=== PATIENT | male | born 1965 | race Caucasian/White ===

== ENCOUNTER → 2024-03-09 08:04 | Outpatient (REF) | payer OTHER, SELFPAY | LOC: DHCBC/DCA 08:04 | PROVIDERS: ATTENDING PHYSICIAN Internal Medicine Cardiovascular Disease; FAMILY PHYSICIAN Family Medicine | DX: R07.9 Chest pain, unspecified (principal) | CPT/HCPCS: 78452; 93017; A9500 ==

== ENCOUNTER 2024-09-15 00:54 | Emergency (ER) | payer OTHER, SELFPAY ==
[2024-09-15 00:54] VITALS: BMI 35.3
[2024-09-15 00:56] VITALS: BP 189/83
[2024-09-15 01:31] LABS: % Basophils 0.5 % (0-2); % Eosinophils 1.7 % (0-6); % Immature Granulocytes 0.4 % (0-0.5); % Lymphocytes 19.3 % (20.5-51.1); % Monocytes 10.2 % (1.7-9.3); % Neutrophils 67.9 % (42.2-75.2); Absolute Basophils 0.1 10^3/uL (0-0.2); Absolute Eosinophils 0.2 10^3/uL (0-0.7); Absolute Immature Granulocytes 0.1 10^3/uL (0-0.05); Absolute Lymphocytes 2.3 10^3/uL (1.2-3.4); Absolute Monocytes 1.2 10^3/uL (0.1-0.6); Absolute Neutrophils 8.1 10^3/uL (1.4-6.5); Hematocrit 42.3 % (39.0-52.0); Hemoglobin 13.9 g/dL (13.0-18.0); Mean Corp Hgb Conc. 32.9 g/dL (33.0-37.0); Mean Corpuscular Hgb 29.3 pg (27.0-31.0); Mean Corpuscular Volume 89.2 fL (80.0-94.0); Mean Platelet Volume 8.6 fL (7.4-10.4); Nucleated Red Blood Cells % 0 % (-); Platelet Count 236 10^3/uL (130-400); Red Blood Cell Count 4.74 10^6/uL (4.70-6.10); Red Cell Dist. Width 13.5 % (11.5-14.5); White Blood Cell Count 11.9 10^3/uL (4.8-10.8)
[2024-09-15 01:45] VITALS: BP 183/78
[2024-09-15 01:49] LABS: ALT (SGPT) 22 U/L (0-50); AST (SGOT) 24 U/L (17-59); Albumin 4.4 g/dl (3.5-5.0); Alkaline Phosphatase 49 U/L (38-126); Blood Urea Nitrogen 15 mg/dl (9-20); Calcium 8.8 mg/dl (8.4-10.2); Carbon Dioxide 24 mmol/L (22-30); Chloride 104 mmol/L (98-107); Estimated Creatinine Clearance 114 ml/min; Glucose 121 mg/dl (70-99); Potassium 3.8 mmol/L (3.5-5.1); Sodium 142 mmol/L (135-145); Total Bilirubin 0.8 mg/dl (0.2-1.3); Total Protein 7.2 g/dl (6.3-8.2); eGFR > 60.00
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
[2024-09-15 01:57] LABS: Troponin I < 0.012 ng/ml
[2024-09-15 02:00] VITALS: BP 148/85
[2024-09-15 02:14] LABS: Lipase 107 U/L (23-300)
[2024-09-15 03:37] VITALS: BP 160/72
[2024-09-15 04:00] VITALS: BP 151/81
[2024-09-15] MEDS: TORADOL 30 MG IV (04:16)
[2024-09-15 05:00] VITALS: BP 152/72
== END 2024-09-15 05:56 | disposition home or self-care (01) ==
LOC: EMR 00:54
PROVIDERS: EMERGENCY PHYSICIAN Emergency Medicine; FAMILY PHYSICIAN Family Medicine
DX: K80.20 Calculus of gallbladder without cholecystitis without obstruction (principal); K21.9 Gastro-esophageal reflux disease without esophagitis; I10 Essential (primary) hypertension; I48.0 Paroxysmal atrial fibrillation; R07.89 Other chest pain; M79.602 Pain in left arm; R06.09 Other forms of dyspnea; G89.29 Other chronic pain; Z98.84 Bariatric surgery status; E66.9 Obesity, unspecified
CPT/HCPCS: 99284; 96374; 76700; 80053; 83690; 84484; 85025; 93005

== ENCOUNTER 2024-10-26 07:50 | Day surgery (SDC) | payer OTHER, SELFPAY ==
--- NOTE | 2024-10-19 14:18 | PTCARENOTE ---
Patients 09/15 ECG abnormal- reviewed by Dr. Murguia- no additional interventions required
[2024-10-26 11:31] VITALS: BMI 33.5
[2024-10-26 11:32] VITALS: BP 152/77
[2024-10-26] MEDS: TYLENOL 1000 MG PO (11:40)
[2024-10-26] MEDS: NORMOSOL-R/PLASMALYTE-A 1000 IV (11:48)
[2024-10-26] MEDS: IC GREEN 2.5 MG IV (11:48)
--- NOTE | 2024-10-26 13:28 | OR.RPT ---
Operative Report
Operative Report
Primary Surgeon: Lissette
Assisting: Rachid LAFLEUR
Pre-op Diagnosis: Biliary colic
Post-op Diagnosis: Chronic cholecystitis
Procedure Performed: Robot assisted laparoscopic cholecystectomy
Anesthesia Type: GETA
Specimen / Cultures: Gallbladder
Estimated Blood Loss: 25cc
Complications: None immediate
Operative Findings: Softly distended intrahepatic gallbladder with thickened wall, dense omental adhesions
Date of Surgery:� 10/26/24
Indications: This 59M developed biliary colic. Laparoscopic cholecystectomy with robotic assist was elected.
Description of procedure: The patient was placed on the operating table in the supine position. General anesthesia was induced. A time-out was completed verifying correct patient, procedure, site, positioning, and special equipment prior to
beginning this procedure. An orogastric tube was placed. The abdomen was prepped and draped in the usual sterile fashion. A stab incision was made in left upper quadrant and the Veress needle was inserted. Proper position was confirmed by aspiration
and saline meniscus test. The abdomen was insufflated with carbon dioxide to a pressure of 12mmHg. The patient tolerated insufflation well.
A 8mm trocar was then inserted above the umbilicus. The laparoscope was inserted and the abdomen inspected. No injuries from initial trocar placement or Veress needle insertion were noted. Additional 8mm trocars were then inserted in the following
locations: two in the right lower quadrant and to the left of the umbilicus and just above. The abdomen was inspected and no abnormalities were found. The table was placed in the reverse Trendelenburg position with the right side up. The dome of the
gallbladder was grasped with an atraumatic grasper and retracted over the dome of the liver. Dense omental adhesions were carefully teased down with gently blunt sweeps and judicious hook cautery. The infundibulum was then grasped with an atraumatic
grasper and retracted toward the right lower quadrant. This maneuver exposed Calot�s triangle. The peritoneum overlying the gallbladder infundibulum was then incised and the cystic duct and cystic artery identified and circumferentially dissected so
that a clear view of the liver was achieved through a window between the cystic duct an cystic artery. At this time, the only two structures going into the gallbladder were the cystic artery and cystic duct.
The cystic duct was then doubly clipped and divided. The cystic artery was controlled with bipolar and divided. The gallbladder was then dissected from its peritoneal attachments by electrocautery. The posterior plane was fibrotic and the wall was
thickened. The gallbladder was also intrahepatic to a moderate degree. The gallbladder was removed using an endoscopic retrieval bag placed through the umbilical port. The gallbladder was passed off the table as a specimen. The gallbladder fossa was
irrigated with sterile saline. There was no evidence of bleeding from the gallbladder fossa or cystic artery or leakage of the bile from the cystic duct stump. The umbilical trocar site was closed at the fascial level with 2-0 PDS. Secondary trocars
were removed under direct vision and noted to be hemostatic. The abdomen was allowed to collapse. The skin was closed with subcuticular sutures of 4-0 monocryl and topical skin adhesive. The orogastric tube was removed.
The patient tolerated the procedure well and was taken to the postanesthesia care unit in stable condition.
[2024-10-26 13:55] VITALS: BP 138/72; BP 152/77
[2024-10-26 14:00] VITALS: BP 138/63
[2024-10-26 14:30] VITALS: BP 147/55
[2024-10-26 14:43] VITALS: BP 149/74
[2024-10-26 15:00] VITALS: BP 161/82
== END 2024-10-26 15:20 | disposition home or self-care (01) ==
LOC: SDS 07:50
PROVIDERS: ATTENDING PHYSICIAN Surgery
DX: K80.20 Calculus of gallbladder without cholecystitis without obstruction (principal)
CPT/HCPCS: 47562; 88304

== ENCOUNTER 2025-07-16 16:22 | Emergency (ER) | payer OTHER, SELFPAY ==
[2025-07-16 16:34] VITALS: BP 183/98
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
== END 2025-07-16 19:28 | disposition home or self-care (01) ==
LOC: EMR 16:22
PROVIDERS: EMERGENCY PHYSICIAN Emergency Medicine; FAMILY PHYSICIAN Family Medicine
DX: H53.10 Unspecified subjective visual disturbances (principal); G47.30 Sleep apnea, unspecified; I48.91 Unspecified atrial fibrillation; I10 Essential (primary) hypertension
CPT/HCPCS: 99282